=== PATIENT | female | born 1955 | race Two or more races ===

== ENCOUNTER → 2016-08-11 | Outpatient (CLI) | payer OTHER | END | disposition home or self-care (01) | LOC: RAD 10:28 | PROVIDERS: ATTEND Neurological Surgery | DX: M41.86 Other forms of scoliosis, lumbar region (principal); M51.36 Other intervertebral disc degeneration, lumbar region; M50.30 Other cervical disc degeneration, unspecified cervical region | CPT/HCPCS: 72082 ==

== ENCOUNTER → 2017-03-25 | Outpatient (CLI) | payer OTHER | LOC: RAD 13:32 | PROVIDERS: ATTEND Neurological Surgery | DX: M41.84 Other forms of scoliosis, thoracic region (principal); Z98.890 Other specified postprocedural states | CPT/HCPCS: 72082 ==

== ENCOUNTER → 2017-05-12 | Outpatient (CLI) | payer OTHER | LOC: RAD 13:08 | PROVIDERS: ATTEND Neurological Surgery | DX: M41.84 Other forms of scoliosis, thoracic region (principal); M54.5 Low back pain; Z98.890 Other specified postprocedural states | CPT/HCPCS: 72082 ==

== ENCOUNTER → 2018-01-28 | Outpatient (CLI) | payer OTHER | END | disposition home or self-care (01) | LOC: RAD 12:19 | PROVIDERS: ATTEND Neurological Surgery | DX: M41.85 Other forms of scoliosis, thoracolumbar region (principal); M41.87 Other forms of scoliosis, lumbosacral region; M41.83 Other forms of scoliosis, cervicothoracic region | CPT/HCPCS: 72082 ==